=== PATIENT | male | born 1955 | race Caucasian/White ===

== ENCOUNTER → 2024-02-23 12:49 | Outpatient (REF) | payer MEDICARE, OTHER, SELFPAY | LOC: RAD 12:49 | PROVIDERS: ATTENDING PHYSICIAN Podiatrist; FAMILY PHYSICIAN Internal Medicine | DX: M72.2 Plantar fascial fibromatosis (principal); R22.41 Localized swelling, mass and lump, right lower limb; M70.871 Other soft tissue disorders related to use, overuse and pressure, right ankle and foot | CPT/HCPCS: 76882 ==

== ENCOUNTER → 2024-05-27 09:15 | Outpatient (REF) | payer MEDICARE, OTHER, SELFPAY | LOC: RAD 09:15 | PROVIDERS: ATTENDING PHYSICIAN Physician Assistant; FAMILY PHYSICIAN Internal Medicine | DX: K59.00 Constipation, unspecified (principal) | CPT/HCPCS: 74018 ==

== ENCOUNTER 2024-09-09 06:07 | Day surgery (SDC) | payer MEDICARE, OTHER, SELFPAY ==
[2024-09-09 11:37] LABS: Glucose - Point of Care 104 mg/dl (70-99)
[2024-09-09 11:54] VITALS: BMI 32.2
[2024-09-09 11:55] VITALS: BMI 32.2
[2024-09-09 11:56] VITALS: BP 137/80
[2024-09-09 14:05] VITALS: BP 135/83
[2024-09-09 14:15] VITALS: BP 130/81
== END 2024-09-09 15:14 | disposition home or self-care (01) ==
LOC: SDS 06:07
PROVIDERS: ATTENDING PHYSICIAN Specialist
DX: Z12.11 Encounter for screening for malignant neoplasm of colon (principal); D12.0 Benign neoplasm of cecum; K22.70 Barrett's esophagus without dysplasia; K22.89 Other specified disease of esophagus; R13.10 Dysphagia, unspecified; Z80.0 Family history of malignant neoplasm of digestive organs
CPT/HCPCS: 45380; 43239; 88305; 82962